=== PATIENT | female | born 1965 | race Caucasian/White ===

== ENCOUNTER 2016-08-20 13:10 | Emergency (ER) | payer OTHER ==
[~2016-08-20] VITALS: Ht 167.6 cm; Wt 86.2 kg
[~2016-08-20 13:10] MED LIST changes: -FLUO10CA48 PO; -FLUO20CA35 PO
[2016-08-20 13:13] VITALS: TEMP 37.1; Ht 167.6 cm; Wt 86.2 kg
[2016-08-20] MEDS ORDERED: FLUO20CA35 PO (13:38)
[2016-08-20] MEDS ORDERED: FLUO10CA48 PO (13:38)
[2016-08-20] MEDS ORDERED: SODIUM CHLORIDE 0.9% 1000ML 1,000 ML IV ONE (14:20)
[2016-08-20] MEDS ORDERED: SODIUM CHLORIDE 0.9% 1000ML 1,000 ML IV STA (14:20)
--- NOTE | 2016-08-20 14:22 | EMERGENCY ROOM VISIT NOTE ---
History Report prepared by Sara: Be Barrow Under the Supervision of: Dr. Be Saul M.D. First contact with patient: 14:14 Chief Complaint: REFERRED BY DOCTOR Stated Complaint: DOCTOR REQUEST History of Present Illness The patient is a 51 year old female who presents to the Emergency Room with complaints of an episode of high blood sugar levels occurring this morning. She notes she had routine blood work done this morning, and was called by her PCP who noted her blood sugar levels were high in the 400s and referred her to the ER. She reports she does not feel sick and does not take any medication for her sugar levels. The patient states she has a history of diabetes and was previously on medication but stopped taking them because she felt like she no longer needed to take them. She denies having an fevers, but admits to pain in her legs, and burning during urination in the morning. She notes having a history of fibromyalgia, arthritis, and degenerative disc disease. Source of History: patient, family Onset: this morning Position: other (global) Symptom Intensity: blood sugar in the 400s Quality: other (hyperglycemia) Timing: other (episode) Associated Symptoms: + urinary symptoms (burning during urination in the mornings), No fevers Note: The patient reports leg pain. Review of Systems See HPI for pertinent positives & negatives. A total of 10 systems reviewed and were otherwise negative. Past Medical & Surgical Medical Problems: (1) History of arthritis (2) History of degenerative disc disease (3) History of diabetes mellitus (4) History of fibromyalgia Old medical records were reviewed. Nurse's notes were reviewed and I agree with. Family History No pertinent family history stated. Social History Smoking Status: Current Some Day Smoker Alcohol Use: none Current/Historical Medications Scheduled Desogestrel-Ethinyl Estradiol (Pimtrea 0.15-0.02/0.01 mg (17/11)), 1 TAB PO DAILY Doxepin Hcl (Sinequan), 150 MG PO QPM Fluoxetine (Prozac), 10 MG PO DAILYBL Fluoxetine (Prozac), 20 MG PO QAM Oxybutynin Chloride (Ditropan Xl), 5 MG PO BID Ranitidine (Zantac), 300 MG PO BID Topiramate (Topamax), 100 MG PO DAILY Topiramate (Topamax), 150 MG PO HS Zaleplon (Sonata), 10 MG PO HS PRN Scheduled PRN Hydrocodone/Acetaminophen 5MG/325MG ([place] 5MG/325MG), 1 TAB PO BID PRN for prn Lorazepam (Ativan), 1 MG PO Q12 PRN for prn Allergies Coded Allergies: Naproxen (Unverified Allergy, Mild, 08/20/16) Diphenhydramine (Unverified Allergy, Unknown, hives, 08/20/16) Penicillins (Unverified Allergy, Unknown, hives, 08/20/16) Tramadol (Verified Allergy, Unknown, swelling, 08/20/16) Physical Exam Vital Signs Date Time Temp Pulse Resp B/P Pulse Ox O2 Delivery O2 Flow Rate FiO2 08/20/16 17:42 82 18 163/90 100 08/20/16 15:08 81 18 149/90 95 Room Air 08/20/16 13:13 37.1 94 18 153/92 97 Room Air Physical Exam General: Non ill appearing middle aged female in no acute distress. HEENT: Normal cephalic atraumatic. Pupils are equal round and reactive to light. Sclera anicteric. Extraocular movements are intact. Oropharynx is pink with moist mucous membranes. No swelling of the mouth lips or tongue. Neck: Supple with a midline trachea. No meningeal signs or stiffness, no JVD or bruits. No Stridor. Chest: Clear to auscultation bilaterally. No wheezes or rhonchi. No increased work of breathing. Heart: regular rate and rhythm. Abdomen: Soft nontender, nondistended without rebound guarding or rigidity. Extremities: No cyanosis clubbing or edema. No calf tenderness or assymetry Spine/Back. Non tender to palpation. No CVA tenderness Skin: Good turgor without rashes. Neurologic exam: Cranial nerves two through 12 are intact. Motor and sensation are intact and symmetrical throughout. Medical Decision & Procedures ER Provider Diagnostic Interpretation: X ray results as stated below per my interpretation and radiologist interpretation. Other radiology results as stated below per my review and radiologist interpretation: CHEST ONE VIEW PORTABLE FINDINGS: The bones soft tissues and hemidiaphragms are normal. The cardiomediastinal silhouette is normal. The lungs are clear. The pulmonary vasculature is normal. IMPRESSION: Negative chest. Electronically signed by: Robert Murray M.D. 08/20/2016 3:00 PM Dictated Date/Time: 08/20/2016 3:00 PM Laboratory Results 08/20/16 13:50 Red Blood Count 4.59, Mean Corpuscular Volume 81.0, Mean Corpuscular Hemoglobin 29.0, Mean Corpuscular Hemoglobin Concent 35.8, Mean Platelet Volume 9.7, Neutrophils (%) (Auto) 60.2, Lymphocytes (%) (Auto) 31.8, Monocytes (%) (Auto) 5.0, Eosinophils (%) (Auto) 2.4, Basophils (%) (Auto) 0.2, Neutrophils # (Auto) 5.01, Lymphocytes # (Auto) 2.65, Monocytes # (Auto) 0.42, Eosinophils # (Auto) 0.20, Basophils # (Auto) 0.02 08/20/16 13:50 Test 08/20/16 13:50 08/20/16 16:25 08/20/16 16:46 White Blood Count 8.33 K/uL (4.8-10.8) Red Blood Count 4.59 M/uL (4.2-5.4) Hemoglobin 13.3 g/dL (12.0-16.0) Hematocrit 37.2 % (37-47) Mean Corpuscular Volume 81.0 fL (80-100) Mean Corpuscular Hemoglobin 29.0 pg (25-34) Mean Corpuscular Hemoglobin Concent 35.8 g/dl (32-36) Platelet Count 230 K/uL (130-400) Mean Platelet Volume 9.7 fL (7.4-10.4) Neutrophils (%) (Auto) 60.2 % Lymphocytes (%) (Auto) 31.8 % Monocytes (%) (Auto) 5.0 % Eosinophils (%) (Auto) 2.4 % Basophils (%) (Auto) 0.2 % Neutrophils # (Auto) 5.01 K/uL (1.4-6.5) Lymphocytes # (Auto) 2.65 K/uL (1.2-3.4) Monocytes # (Auto) 0.42 K/uL (0.11-0.59) Eosinophils # (Auto) 0.20 K/uL (0-0.5) Basophils # (Auto) 0.02 K/uL (0-0.2) RDW Standard Deviation 43.1 fL (36.4-46.3) RDW Coefficient of Variation 14.5 % (11.5-14.5) Immature Granulocyte % (Auto) 0.4 % Immature Granulocyte # (Auto) 0.03 K/uL (0.00-0.02) Anion Gap 13.0 mmol/L (3-11) Est Creatinine Clear Calc Drug Dose 75.2 ml/min Estimated GFR () 77.0 Estimated GFR (Non- 66.4 BUN/Creatinine Ratio 11.6 (10-20) Calcium Level 8.3 mg/dl (8.5-10.1) Total Bilirubin 0.3 mg/dl (0.2-1) Direct Bilirubin < 0.1 mg/dl (0-0.2) Aspartate Amino Transf (AST/SGOT) 25 U/L (15-37) Alanine Aminotransferase (ALT/SGPT) 28 U/L (12-78) Alkaline Phosphatase 93 U/L (45-117) Total Protein 7.5 gm/dl (6.4-8.2) Albumin 3.4 gm/dl (3.4-5.0) Lipase 315 U/L (73-393) Beta-Hydroxybutyric Acid 4.49 mg/dL (0.2-2.81) Urine Color YELLOW Urine Appearance CLEAR (CLEAR) Urine pH 5.0 (4.5-7.5) Urine Specific [place] 1.029 (1.000-1.030) Urine Protein NEG (NEG) Urine Glucose (UA) 3+ (NEG) Urine Ketones TRACE (NEG) Urine Occult Blood NEG (NEG) Urine Nitrite NEG (NEG) Urine Bilirubin NEG (NEG) Urine Urobilinogen NEG (NEG) Urine Leukocyte Esterase NEG (NEG) Bedside Glucose 322 mg/dl (70-90) Laboratory studies as stated above per my review. Medications Administered Medications (Trade) Dose Ordered Sig/Amari Route Start Time Stop Time Status Last Admin Dose Admin Sodium Chloride 1,000 ml @ 999 mls/hr Q1H1M STAT IV 08/20/16 14:20 08/20/16 15:20 DC 08/20/16 15:07 999 MLS/HR Sodium Chloride (Nss 1000ml) 1,000 ml @ 200 mls/hr Q5H ONCE IV 08/20/16 14:20 08/20/16 18:24 DC 08/20/16 16:26 200 MLS/HR Insulin Human Regular (novoLIN-R U-100 PER UNIT) 5 units NOW STAT IV 08/20/16 15:11 08/20/16 15:12 DC 08/20/16 15:21 5 UNITS ECG Indication: other (hyperglycemia) Rate (beats per minute): 82 Rhythm: normal sinus Findings: nonspecific-ST abn Comparison ECG Date: 11/03/07 Change: Non specific ST wave abnormality is new. ED Course 141: Past medical records reviewed. The patient was evaluated in room A2, and a complete history and physical examination were performed. 1420: Ordered NSS 1,000 ml @ 200 mls/hr IV, and NSS 1,000 ml @ 999 mls/hr IV. 151: Ordered Insulin Human Regular 5 units IV. 1740: Upon reevaluation, the patient is doing well. I discussed the results and treatment plan with the patient. She verbalized agreement of the treatment plan. The patient was discharged home. Medical Decision Differentials include DKA, hyperglycemia, electrolyte or metabolic abnormality, and infection. This patient comes in as described above. She was placed in room A2. She is a symptomatically at present. She had routine blood work done today and her doctor sent her over here for further treatment and evaluation. her blood sugar was high and CO2 is mildly low at 20. again she is asymptomatic she had been on an oral hypoglycemic agents but had stopped it as she felt she did not need it. an A1c is 9.9 today. IV access was established she was hydrated with normal saline EKG and multiple blood testing was obtained. She was reassessed frequently. He remained stable and he symptomatically while she was here rechecked her blood sugar several times and it is coming downwards. She does have some mild ketones. At this point she is well-hydrated I think can go home with close follow-up she is given a see her doctor in 1 day on . They can restart her on medications. Again she apparently has type 2 diabetes. I talked to her at length and I told her to watch her carbs and her sugar intake tomorrow to drink plenty of fluids and return return if: worsening symptoms, not tolerating fluids, fever or chills any new problems or concerns. She has no evidence of infection at this point. She'll follow-up with her doctor on and will need further diabetic education as an outpatient. Impression Primary Impression: Hyperglycemia Additional Impression: Diabetes Scribe Attestation The scribe's documentation has been prepared under my direction and personally reviewed by me in its entirety. I confirm that the note above accurately reflects all work, treatment, procedures, and medical decision making performed by me. Departure Information Dispostion Home / Self-Care Referrals Courtney Allen DO (PCP) Patient Instructions My [facility] Additional Instructions Rest. Drink plenty of fluids. Check your blood sugar frequently and before bedtime Minimize your carbohydrate usage Keep your appointment with your doctor on and youwill need to be restarted on some medications for your diabetes Return ER if: Nausea vomiting, not tolerating fluids, worsening symptoms, any new problems or concerns. Problem Qualifiers
[2016-08-20 14:45] LABS: BASO % 0.2 %; BASO ABS # 0.02 K/uL (0-0.2); COMPLETE YES; EOS % 2.4 %; HEMATOCRIT 37.2 % (37-47); IG% 0.4 %; LYMPH % 31.8 %; LYMPH ABS # 2.65 K/uL (1.2-3.4); MEAN CORPUSCULAR HGB CONC 35.8 g/dl (32-36); MEAN PLATELET VOLUME 9.7 fL (7.4-10.4); NEUT % 60.2 %; PLATELET COUNT 230 K/uL (130-400); RED BLOOD COUNT 4.59 M/uL (4.2-5.4); WHITE BLOOD COUNT 8.33 K/uL (4.8-10.8)
[2016-08-20 15:00] LABS: ALKALINE PHOSPHATASE 93 U/L (45-117); ALT/SGPT 28 U/L (12-78); AST/SGOT 25 U/L (15-37); BLOOD UREA NITROGEN 11 mg/dl (7-18); BUN/CREATININE RATIO 11.6 (10-20); CALCIUM 8.3 mg/dl (8.5-10.1); CARBON DIOXIDE 19 mmol/L (21-32); CHLORIDE 98 mmol/L (98-107); CREATININE 0.99 mg/dl (0.60-1.20); GLUCOSE 425 mg/dl (70-99); POTASSIUM 3.7 mmol/L (3.5-5.1); SODIUM 130 mmol/L (136-145)
--- NOTE | 2016-08-20 15:02 | DIAGNOSTIC IMAGING REPORT ---
CHEST ONE VIEW PORTABLE CLINICAL HISTORY: CHEST PAIN dyspnea COMPARISON STUDY: 08/19/2010 FINDINGS: The bones soft tissues and hemidiaphragms are normal. The cardiomediastinal silhouette is normal. The lungs are clear. The pulmonary vasculature is normal. IMPRESSION: Negative chest. Electronically signed by: Robert Murray M.D. 08/20/2016 3:00 PM Dictated Date/Time: 08/20/2016 3:00 PM
[2016-08-20] MEDS ORDERED: NovoLIN-R INSULIN PER UNIT CHARGE IV STA (15:11)
[2016-08-20 15:18] LABS: BETA-HYDROXYBUTYRATE 4.49 mg/dL (0.2-2.81)
[2016-08-20 17:08] LABS: URINE APPEARANCE CLEAR (CLEAR); URINE BILIRUBIN NEG (NEG); URINE COLOR YELLOW; URINE NITRITE NEG (NEG); URINE SPECIFIC GRAVITY 1.029 (1.000-1.030); UROBILINOGEN NEG (NEG)
[2016-08-20 17:29] LABS: MANUAL MICROSCOPIC REQUIRED? NO; REVIEW REQ? NO
[2016-08-20 17:42] VITALS: BP 163/90; PULSE 82; O2SAT 100
== END 2016-08-20 17:42 | disposition home or self-care (01) ==
LOC: C.EDB 13:11 → C.EDA 17:42
DX: E11.65 Type 2 diabetes mellitus with hyperglycemia (principal); R30.0 Dysuria; E11.9 Type 2 diabetes mellitus without complications; E78.5 Hyperlipidemia, unspecified; E55.9 Vitamin D deficiency, unspecified

== ENCOUNTER → 2016-08-20 | Outpatient (CLI) | payer OTHER ==
[~2016-08-20] MED LIST: ATV/1 PO; CYM/30 PO; DESO5TAB PO; FLUO10CA48 PO; FLUO20CA35 PO; GLYB5TAB8 PO; HYDR-5688 PO; OXYB5TAB21 PO; RANI300T2 PO; RANITAB33 PO; SNQ/50 PO; SNT/10 PO; TOPI100T20 PO
[2016-08-20 09:35] LABS: ESTIMATED AVERAGE GLUCOSE 237 mg/dl; HA1C FLAG Normal (Normal)
[2016-08-20 10:04] LABS: ALB/GLOB RATIO 0.8 (0.9-2); ALKALINE PHOSPHATASE 100 U/L (45-117); ALT/SGPT 29 U/L (12-78); AST/SGOT 21 U/L (15-37); BLOOD UREA NITROGEN 12 mg/dl (7-18); BUN/CREATININE RATIO 12.4 (10-20); CALCIUM 9.1 mg/dl (8.5-10.1); CARBON DIOXIDE 20 mmol/L (21-32); CHLORIDE 100 mmol/L (98-107); CHOLESTEROL 235 mg/dl (0-200); CHOLESTEROL/HDL RATIO 9.8; CREATININE 0.98 mg/dl (0.60-1.20); HDL CHOLESTEROL 24 mg/dl; POTASSIUM 4.2 mmol/L (3.5-5.1); SODIUM 132 mmol/L (136-145); THYROID STIMULATING HORMONE 0.646 uIu/ml (0.300-4.500); TRIGLYCERIDES 1200 mg/dl (0-150)
[2016-08-20 10:07] LABS: GLUCOSE 415 mg/dl (70-99)
[2016-08-20 10:25] LABS: BETA-HYDROXYBUTYRATE 7.14 mg/dL (0.2-2.81)
== END | disposition home or self-care (01) ==
LOC: C.LAB 07:04
PROVIDERS: ATTEND Family Medicine
DX: E11.9 Type 2 diabetes mellitus without complications (principal); E78.5 Hyperlipidemia, unspecified; E55.9 Vitamin D deficiency, unspecified

== ENCOUNTER → 2016-09-20 | Outpatient (CLI) | payer OTHER ==
[~2016-09-20] MED LIST changes: -CYM/30 PO; +FLUO10CA48 PO; +FLUO20CA35 PO; -GLYB5TAB8 PO; -RANITAB33 PO
[2016-09-20 10:51] LABS: BASO % 0.2 %; BASO ABS # 0.01 K/uL (0-0.2); COMPLETE YES; EOS % 2.3 %; HEMATOCRIT 38.7 % (37-47); IG% 0.2 %; LYMPH % 32.5 %; LYMPH ABS # 2.16 K/uL (1.2-3.4); MEAN CELL VOLUME 86.2 fL (80-100); MEAN CORPUSCULAR HEMOGLOBIN 30.5 pg (25-34); MEAN CORPUSCULAR HGB CONC 35.4 g/dl (32-36); MEAN PLATELET VOLUME 10.1 fL (7.4-10.4); MONO % 8.7 %; NEUT % 56.1 %; PLATELET COUNT 259 K/uL (130-400); RED BLOOD COUNT 4.49 M/uL (4.2-5.4); WHITE BLOOD COUNT 6.65 K/uL (4.8-10.8)
[2016-09-20 11:34] LABS: ALT/SGPT 27 U/L (12-78); AST/SGOT 18 U/L (15-37); BLOOD UREA NITROGEN 8 mg/dl (7-18); CALCIUM 8.9 mg/dl (8.5-10.1); CARBON DIOXIDE 19 mmol/L (21-32); CHLORIDE 109 mmol/L (98-107); CREATININE 0.92 mg/dl (0.60-1.20); GLUCOSE 147 mg/dl (70-99); POTASSIUM 4.1 mmol/L (3.5-5.1); SODIUM 139 mmol/L (136-145)
[2016-09-20 11:45] LABS: ALKALINE PHOSPHATASE 83 U/L (45-117); THYROID STIMULATING HORMONE 0.747 uIu/ml (0.300-4.500)
== END | disposition home or self-care (01) ==
LOC: C.LABBC 09:04
PROVIDERS: ATTEND Psychiatry & Neurology Neurology
DX: E11.9 Type 2 diabetes mellitus without complications (principal); G62.9 Polyneuropathy, unspecified; R53.1 Weakness

== ENCOUNTER → 2016-10-16 | Outpatient (CLI) | payer OTHER | END | disposition home or self-care (01) | LOC: C.PAPS 15:36 | PROVIDERS: ATTEND Obstetrics & Gynecology | DX: Z12.4 Encounter for screening for malignant neoplasm of cervix (principal) ==

== ENCOUNTER → 2016-12-25 | Outpatient (CLI) | payer OTHER ==
[2016-12-25 10:00] LABS: ALT/SGPT 29 U/L (12-78); BLOOD UREA NITROGEN 13 mg/dl (7-18); BUN/CREATININE RATIO 12.5 (10-20); CALCIUM 9.6 mg/dl (8.5-10.1); CARBON DIOXIDE 22 mmol/L (21-32); CHLORIDE 109 mmol/L (98-107); CHOLESTEROL 351 mg/dl (0-200); GLUCOSE 135 mg/dl (70-99); POTASSIUM 4.1 mmol/L (3.5-5.1); SODIUM 140 mmol/L (136-145); TRIGLYCERIDES 405 mg/dl (0-150)
[2016-12-25 10:03] LABS: ALKALINE PHOSPHATASE 96 U/L (45-117); AST/SGOT 15 U/L (15-37); HDL CHOLESTEROL 35 mg/dl
[2016-12-25 10:13] LABS: ESTIMATED AVERAGE GLUCOSE 143 mg/dl; HA1C FLAG Normal (Normal)
== END | disposition home or self-care (01) ==
LOC: C.LAB 07:14
PROVIDERS: ATTEND Family Medicine
DX: H53.8 Other visual disturbances (principal); E11.9 Type 2 diabetes mellitus without complications; E78.5 Hyperlipidemia, unspecified

== ENCOUNTER → 2017-09-16 | Outpatient (CLI) | payer OTHER ==
--- NOTE | 2017-09-16 10:37 | DIAGNOSTIC IMAGING REPORT ---
CHEST 2 VIEWS ROUTINE HISTORY: 52 years-old Female R06.02, R10.11 acute generalized abdominal pain COMPARISON: Chest radiograph 08/20/2016 TECHNIQUE: PA and lateral views of the chest FINDINGS: Cardiomediastinal and hilar silhouettes are within normal limits. There is no pneumothorax, pleural effusion, focal airspace consolidation or overt pulmonary edema. Mild right hemidiaphragmatic elevation. The bones of the chest appear grossly intact. IMPRESSION: No acute process. The above report was generated using voice recognition software. It may contain grammatical, syntax or spelling errors. Electronically signed by: Francisco Edwards M.D. 09/16/2017 10:36 AM Dictated Date/Time: 09/16/2017 10:34 AM
[2017-09-16 12:20] LABS: BASO % 0.3 %; BASO ABS # 0.02 K/uL (0-0.2); EOS % 1.7 %; EOS ABS # 0.12 K/uL (0-0.5); HEMATOCRIT 37.4 % (37-47); HEMOGLOBIN 12.9 g/dL (12.0-16.0); IG# 0.01 K/uL (0.00-0.02); LYMPH % 29.5 %; LYMPH ABS # 2.08 K/uL (1.2-3.4); MEAN CELL VOLUME 88.6 fL (80-100); MEAN CORPUSCULAR HEMOGLOBIN 30.6 pg (25-34); MEAN CORPUSCULAR HGB CONC 34.5 g/dl (32-36); MEAN PLATELET VOLUME 9.3 fL (7.4-10.4); MONO % 7.7 %; MONO ABS # 0.54 K/uL (0.11-0.59); NEUT % 60.7 %; NEUT ABS # 4.27 K/uL (1.4-6.5); PLATELET COUNT 237 K/uL (130-400); RED CELL DISTRIBUTION WIDTH CV 14.7 % (11.5-14.5); RED CELL DISTRIBUTION WIDTH SD 47.6 fL (36.4-46.3); WHITE BLOOD COUNT 7.04 K/uL (4.8-10.8)
[2017-09-16 12:50] LABS: ALBUMIN 3.7 gm/dl (3.4-5.0); ALT/SGPT 39 U/L (12-78); AST/SGOT 25 U/L (15-37); BLOOD UREA NITROGEN 12 mg/dl (7-18); CARBON DIOXIDE 22 mmol/L (21-32); CREATININE 0.97 mg/dl (0.60-1.20); GLUCOSE 181 mg/dl (70-99); LIPASE 328 U/L (73-393); POTASSIUM 4.5 mmol/L (3.5-5.1); SODIUM 135 mmol/L (136-145)
[2017-09-16 12:53] LABS: ALKALINE PHOSPHATASE 97 U/L (45-117); TOTAL PROTEIN 7.6 gm/dl (6.4-8.2)
== END | disposition home or self-care (01) ==
LOC: C.RAD1850 10:07
PROVIDERS: ATTEND Nurse Practitioner Family
DX: R06.02 Shortness of breath (principal); R10.11 Right upper quadrant pain

== ENCOUNTER → 2017-09-18 | Outpatient (CLI) | payer OTHER ==
--- NOTE | 2017-09-18 10:54 | DIAGNOSTIC IMAGING REPORT ---
ABDOMINAL ULTRASOUND, RIGHT UPPER QUADRANT HISTORY: Right upper quadrant pain.. COMPARISON: Abdomen and pelvis CT 02/13/2016. FINDINGS: Pancreas: The pancreatic head and tail are obscured by overlying bowel gas. The remaining portions of the pancreas are within normal limits. Liver: The liver is echogenic consistent with fatty change. Gallbladder: No gallbladder wall thickening. No gallstones. CBD: 5 mm. Right kidney: No hydronephrosis. IMPRESSION: 1. Normal gallbladder. No gallstones. 2. Hepatic steatosis. Electronically signed by: Moe Burnham M.D. 09/18/2017 10:53 AM Dictated Date/Time: 09/18/2017 10:32 AM
== END | disposition home or self-care (01) ==
LOC: C.ULTRBC 08:38
PROVIDERS: ATTEND Nurse Practitioner Family
DX: R06.02 Shortness of breath (principal); R10.11 Right upper quadrant pain; K76.0 Fatty (change of) liver, not elsewhere classified

== ENCOUNTER → 2017-09-30 | Outpatient (CLI) | payer OTHER ==
[~2017-09-30] MED LIST changes: +OPTIRAY 320 IV PRN
--- NOTE | 2017-09-30 11:54 | DIAGNOSTIC IMAGING REPORT ---
CT ABD/PELVIS IV AND ORAL CONT CLINICAL HISTORY: R10.11 Abdominal pain, RUQ (right upper quadrant)[id number] COMPARISON STUDY: 02/13/2016 TECHNIQUE: Following the IV administration of 92 mL of Optiray-320, CT scan of the abdomen and pelvis was performed from the lung bases to the proximal femurs. Images are reviewed in the axial, sagittal, and coronal planes. IV contrast was administered without complication. A dose lowering technique was utilized adhering to the principles of ALARA. CT DOSE: 582.35 mGy.cm FINDINGS: Lower chest: The heart is normal in size and configuration, without pericardial effusion. The lung bases and pleural spaces are clear. Liver: There is mild hepatic steatosis. No focal masses are visualized. 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 This is likely venous, and likely arises from the portal vein. One cannot exclude anomalous communication with a hepatic vein. Gallbladder: Unremarkable. Spleen: The spleen is borderline enlarged measuring 12 cm. Pancreas: Unremarkable. Adrenal glands: Unremarkable. Kidneys: There is symmetric renal cortical enhancement. The kidneys are normal in size without hydronephrosis. Bowel: There is mild fecal retention. There are no transition zones to indicate bowel obstruction. The appendix appears normal. There is no acute diverticulitis. Peritoneum: There is no intraperitoneal free air or abdominal ascites. Vasculature: The abdominal aorta is normal in course and caliber. Adenopathy: None. Pelvic viscera: The bladder, and pelvic viscera are unremarkable. Skeletal structures: No destructive osseous lesions are seen. IMPRESSION: 1. No acute intra-abdominal or pelvic findings 2. No evidence of bowel obstruction. No evidence of free air 3. No acute inflammatory changes 4. 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 Electronically signed by: Dwaine Butt M.D. 09/30/2017 11:52 AM Dictated Date/Time: 09/30/2017 11:45 AM
== END | disposition home or self-care (01) ==
LOC: C.CTS 11:25
PROVIDERS: ATTEND Nurse Practitioner Family
DX: R10.11 Right upper quadrant pain (principal)

== ENCOUNTER → 2017-10-17 | Outpatient (CLI) | payer OTHER ==
[~2017-10-17] MED LIST changes: -OPTIRAY 320 IV PRN
== END | disposition home or self-care (01) ==
LOC: C.PAPS 13:56
PROVIDERS: ATTEND Obstetrics & Gynecology
DX: Z12.4 Encounter for screening for malignant neoplasm of cervix (principal)

== ENCOUNTER → 2017-10-22 | Outpatient (CLI) | payer OTHER ==
--- NOTE | 2017-10-22 08:37 | DIAGNOSTIC IMAGING REPORT ---
DOUBLE CONTRAST BARIUM ESOPHAGRAM CLINICAL HISTORY: Dysphagia. COMPARISON STUDY: No priors.. TECHNIQUE: A standard air contrast barium esophagram is performed. Multiple spot images of the esophagus are acquired both upright and prone. FINDINGS: The patient swallowed barium and the barium pill without difficulty. The mucosal pattern is normal. Moderate esophageal dysmotility is noted. There is no evidence of intrinsic or extrinsic mass lesion. No aspiration was seen. The gastroesophageal junction distended normally. Gastroesophageal reflux was observed during the examination. Fluoroscopy time: 1.2 minutes. Fluoroscopic images: 24 IMPRESSION: 1. Mild esophageal dysmotility. 2. Gastroesophageal reflux was observed during the examination. Electronically signed by: Keyur Benton M.D. 10/22/2017 8:36 AM Dictated Date/Time: 10/22/2017 8:35 AM
== END | disposition home or self-care (01) ==
LOC: C.RAD 07:49
PROVIDERS: ATTEND Family Medicine
DX: R13.10 Dysphagia, unspecified (principal)